=== PATIENT | male | born 1955 | race Caucasian/White ===

== ENCOUNTER 2020-05-22 10:51 | Inpatient (IN) | payer BC, OTHER ==
[~2020-05-22] VITALS: Ht 165.1 cm; Wt 106.4 kg
--- NOTE | 2020-05-22 11:04 | NUR ---
CODE CARDIAC CALLED AT 1100
[2020-05-22] MEDS ORDERED: MORPHINE SULFATE 4 MG/ML, 1ML ONE (11:07)
[2020-05-22] MEDS ORDERED: FENTANYL PF 100 MCG/2ML ONE (11:08)
[2020-05-22] MEDS ORDERED: MIDAZOLAM 1 MG/ML, 2ML ONE (11:08)
[2020-05-22] MEDS ORDERED: BIVALIRUDIN 250 MG ONE (11:09)
[2020-05-22] MEDS ORDERED: LIDOCAINE 1%, 20ML ONE (11:09)
[2020-05-22] MEDS ORDERED: VERAPAMIL 2.5 MG/ML, 2ML ONE (11:09)
--- NOTE | 2020-05-22 11:09 | NUR ---
pg code cardiac @ 1100 pg cards at 1107
--- NOTE | 2020-05-22 11:15 | NUR ---
MD HALEY AT BEDSIDE FOR EVALUATION. PT TOOK 81MG X8 ASA ORTHOTIST, 0.4 NTG X2 & 4MG MORPHINE ADMINISTERED.
--- NOTE | 2020-05-22 11:22 | NUR ---
PT TO DIGITAL PRODUCER
[2020-05-22 11:24] LABS: BASOPHILS % (AUTO) 1 % (0-1); EOSINOPHILS % (AUTO) 1 % (1-7); LYMPHOCYTES % (AUTO) 33 % (22-44); MEAN CORPUSCULAR HGB CONC 33.8 g/dL (33.2-36.2); MEAN PLATELET VOLUME 8.6 fL (7.4-10.4); MONOCYTES % (AUTO) 8 % (2-9); NEUTROPHILS % (AUTO) 57 % (42-75); PLATELET COUNT 282 x10^3/uL (130-400); RED BLOOD COUNT 5.66 x10^6/uL (4.38-5.82); RED CELL DISTRIBUTION WIDTH 14.9 % (9.4-14.8)
[2020-05-22 11:25] LABS: MD NO
[2020-05-22] MEDS ORDERED: BISACODYL 10 MG SUPP PR PRN (11:30)
[2020-05-22] MEDS ORDERED: morphine SULFATE 10 MG/ML, 1ML IVPush PRN (11:30)
[2020-05-22] MEDS ORDERED: ZOLPIDEM 5MG TABLET PO PRN (11:30)
[2020-05-22] MEDS ORDERED: ONDANSETRON 2MG/ML, 2ML IVPush PRN (11:30)
[2020-05-22] MEDS ORDERED: NITROGLYCERIN SINGLE TAB 0.4 MG SL PRN (11:30)
[2020-05-22] MEDS ORDERED: MORPHINE SULFATE 4 MG/ML, 1ML IVPush ONE (11:30)
[2020-05-22 11:34] LABS: INTERNATIONAL NORMALIZED RATIO 0.99 (0.93-1.1); PROTHROMBIN TIME 10.5 Seconds (9.6-11.5)
--- NOTE | 2020-05-22 11:35 | NUR ---
LATE ENTRY 1120: TASK RN. ASSISTING PRIMARY RN TRAVIS. WHO FORM COMPLETED BY PARMINDER CHAPA. MOBILE THERAPIST PROCEDURE/CONSENT SIGNED AT BEDSIDE BY PT AND COLLEGE TUTOR DR. HALEY. PT TRANSFERRED TO MOBILE THERAPIST WITH CARIOLOGIST, EDINSON CHAPA AND GEOLOGIC TECHNICIANRAMBO PRAJAPATI. ALL MONITORS ON AND RADIOTRANSPARENT DEFIB PADS IN PLACE. ACCOMPANIED BY SPOUSE, WHO TOOK ALL OF PT'S BELONGINGS. REPORT GIVEN TO CHEO CHAPA IN MOBILE THERAPIST, ISTAT RESULTS RECEIVED IN MOBILE THERAPIST AND GIVEN TO CHEO CHAPA AND DR. HALEY AT TIME OF TRANSFER 1120.
[2020-05-22] MEDS ORDERED: PRASUGREL 10 MG TABLET ONE (11:47)
[2020-05-22 11:56] LABS: TROPONIN I < 0.015 ng/mL (0.000-0.045)
[2020-05-22] MEDS ORDERED: BIVALIRUDIN 250 MG in SODIUM CHLORIDE 0.9% 50 ML IV SCH (12:00)
[2020-05-22] MEDS ORDERED: SODIUM CHLORIDE 0.9% 1,000 ML IV SCH (12:00)
[2020-05-22 12:10] VITALS: BP 139/80
[2020-05-22] MEDS: ACETAMINOPHEN 325 MG TABLET PO PRN (18:35)
[2020-05-22] MEDS: METOPROLOL TARTRATE 25 MG TAB PO SCH (18:35)
[2020-05-22] MEDS: ATORVASTATIN 80 MG TABLET PO SCH (20:33)
[2020-05-23 04:59] LABS: ANION GAP 6 mmol/L (5-15); CALCIUM 8.8 mg/dL (8.5-10.1); CHLORIDE 110 mmol/L (98-107); CHOLESTEROL, TOTAL 229 mg/dL (140-239); CREATININE 0.99 mg/dL (0.7-1.3); TRIGLYCERIDES 125 mg/dL (50-200); VLDL CHOLESTEROL 25 mg/dL (0-25)
[2020-05-23 05:01] LABS: CHOL/HDL RATIO 5.5; HDL CHOL % 18 % (26-37); HDL CHOLESTEROL (DIRECT) 42 mg/dL (40-60); LDL CHOLESTEROL,CALCULATED 162 mg/dL (54-169); LDL/HDL RATIO 3.9 (0.5-3.0)
[2020-05-23] MEDS: ASPIRIN 81 MG TABLET EC PO SCH (06:02)
[2020-05-23] MEDS: METOPROLOL TARTRATE 25 MG TAB PO SCH ×2 (06:02→17:02)
[2020-05-23] MEDS: PRASUGREL 10 MG TABLET PO SCH (08:25)
[2020-05-23 13:55] VITALS: BP 140/80
[2020-05-23] MEDS: ATORVASTATIN 80 MG TABLET PO SCH (19:58)
[2020-05-24] MEDS: ACETAMINOPHEN 325 MG TABLET PO PRN (04:23)
[2020-05-24] MEDS: ASPIRIN 81 MG TABLET EC PO SCH (04:23)
[2020-05-24 08:00] VITALS: BP 150/79
[2020-05-24] MEDS: METOPROLOL TARTRATE 25 MG TAB PO SCH (08:39)
[2020-05-24] MEDS: PRASUGREL 10 MG TABLET PO SCH (08:39)
[2020-05-24] MEDS ORDERED: AMLODIPINE 10 MG TAB ONE (08:49)
[2020-05-24] MEDS ORDERED: NITR0.4T28 SL (08:56)
[2020-05-24] MEDS ORDERED: PRAS10TA4 PO (08:56)
[2020-05-24] MEDS ORDERED: METO25TA35 PO (08:56)
[2020-05-24] MEDS ORDERED: ASPI81TA45 PO (08:56)
[2020-05-24] MEDS ORDERED: PRAV20TA2 PO (08:56)
[2020-05-24] MEDS ORDERED: AMLODIPINE 10 MG TAB PO SCH (09:00)
[2020-05-24 11:01] VITALS: BP 150/79
== END 2020-05-24 11:15 | disposition home or self-care (01) | DRG 247 ==
LOC: ED 11:27 → EDIP 11:28 → ED 12:17 → CCU 12:24 → DCLOUNGE 05-24 10:58
PROVIDERS: ADMIT Internal Medicine Clinical Cardiac Electrophysiology; ATTEND Internal Medicine
PROC: 027034Z Dilation of Coronary Artery, One Artery with Drug-eluting Intraluminal Device, Percutaneous Approach (ICD-10-PCS; principal; 2020-05-22)
PROC: 4A023N7 Measurement of Cardiac Sampling and Pressure, Left Heart, Percutaneous Approach (ICD-10-PCS; 2020-05-22)
PROC: B2111ZZ Fluoroscopy of Multiple Coronary Arteries using Low Osmolar Contrast (ICD-10-PCS; 2020-05-22)
PROC: B2151ZZ Fluoroscopy of Left Heart using Low Osmolar Contrast (ICD-10-PCS; 2020-05-22)
DX: I21.19 ST elevation (STEMI) myocardial infarction involving other coronary artery of inferior wall (principal); E78.5 Hyperlipidemia, unspecified; I10 Essential (primary) hypertension; I25.9 Chronic ischemic heart disease, unspecified; I49.3 Ventricular premature depolarization; Z87.891 Personal history of nicotine dependence; Z20.828 Contact with and (suspected) exposure to other viral communicable diseases
CPT/HCPCS: 36415; 93458; 96374; 99291; J3490; 71045; 80047; 80048; 80061; 83036; 84443; 84484; 85025; 85610; 85730; 87635; 93005; 93306; 99156; C1760; C1769; C1894; G0378; J0583; J2250; J3010; C1874; C1887; J2270; J7030; Q9967

== ENCOUNTER 2020-06-17 10:46 | Emergency (ER) | payer OTHER ==
[~2020-06-17] VITALS: Ht 167.6 cm; Wt 104.6 kg
[~2020-06-17 10:46] MED LIST: ASPI81TA45 PO; METO25TA35 PO; NITR0.4T28 SL; PRAS10TA4 PO; PRAV20TA2 PO
--- NOTE | 2020-06-17 11:18 | NUR ---
PT IN BED, VSS, STATES HE HAS A PAIN IN UPPER BACK THAT HAS MOVED TO LOWER BACK 4 AND IS POSITIONAL
[2020-06-17] MEDS ORDERED: METHOCARBAMOL 750 MG TABLET PO ONE (11:30)
[2020-06-17 11:33] LABS: BASOPHILS % (AUTO) 1 % (0-1); EOSINOPHILS % (AUTO) 3 % (1-7); LYMPHOCYTES % (AUTO) 29 % (22-44); MD NO; MEAN CORPUSCULAR HEMOGLOBIN 28.6 pg (27.5-34.5); MEAN CORPUSCULAR HGB CONC 33.9 g/dL (33.2-36.2); MEAN PLATELET VOLUME 8.6 fL (7.4-10.4); MONOCYTES % (AUTO) 10 % (2-9); NEUTROPHILS % (AUTO) 57 % (42-75); PLATELET COUNT 226 x10^3/uL (130-400); RED BLOOD COUNT 5.47 x10^6/uL (4.38-5.82); RED CELL DISTRIBUTION WIDTH 15.2 % (9.4-14.8)
[2020-06-17] MEDS ORDERED: METHOCARBAMOL 750 MG TABLET ONE (11:34)
--- NOTE | 2020-06-17 11:38 | NUR ---
PT IN BED ADMIN ROBAXIN, VSS, NO DISTRESS
[2020-06-17 11:43] LABS: ALBUMIN 3.9 g/dL (3.4-5.0); ANION GAP 5 mmol/L (5-15); CALCIUM 8.9 mg/dL (8.5-10.1); CHLORIDE 110 mmol/L (98-107)
[2020-06-17 11:46] LABS: TROPONIN I < 0.015 ng/mL (0.000-0.045)
--- NOTE | 2020-06-17 12:18 | NUR ---
notified dr brewster about pt left eye redness, asked about it mulitple times, eyes are plura, no deficits. vss, pt states that his pain went from a a 7/10 to a 3/10 after meds
--- NOTE | 2020-06-17 13:04 | NUR ---
PT IN BED NO DISTRESS, VSS,
[2020-06-17 14:24] VITALS: BP 116/60
== END 2020-06-17 14:39 | disposition home or self-care (01) ==
LOC: ED 12:43
DX: M54.6 Pain in thoracic spine (principal); M54.5 Low back pain; R51.9 Headache, unspecified; R07.9 Chest pain, unspecified; I10 Essential (primary) hypertension; Z87.891 Personal history of nicotine dependence
CPT/HCPCS: 36415; 71045; 72110; 80048; 82040; 83880; 84484; 85025; 93005; 99285